=== PATIENT | male | born 1965 | race Caucasian/White ===

== ENCOUNTER 2022-06-22 12:35 | Emergency (ER) | payer BC, OTHER ==
[2022-06-22] MEDS ORDERED: Ketorolac Tromethamine 30 MG/ML VIAL ONE (13:34)
[2022-06-22] MEDS ORDERED: Morphine 10 MG/ML VIAL ONE ×2 (13:35→14:25)
== END 2022-06-22 17:19 | disposition home or self-care (01) ==
LOC: CSHERS 12:35
DX: M54.16 Radiculopathy, lumbar region (principal)
CPT/HCPCS: 96374; 96375; 96376; J1885; J2270

== ENCOUNTER 2022-06-24 12:36 | Emergency (ER) | payer OTHER, SELFPAY ==
[2022-06-24] MEDS ORDERED: Ketorolac Tromethamine 30 MG/ML VIAL ONE (14:34)
[2022-06-24] MEDS ORDERED: Morphine 4 MG/ML VIAL ONE ×2 (14:34→15:31)
== END 2022-06-24 15:38 | disposition home or self-care (01) ==
LOC: CSHERS 12:36
DX: M51.26 Other intervertebral disc displacement, lumbar region (principal)
CPT/HCPCS: 72148; 96374; 96375; 96376; J1885; J2270